=== PATIENT | male | born 1980 | race Caucasian/White ===

== ENCOUNTER 2020-01-10 04:59 | Emergency (ER) | payer OTHER, SELFPAY ==
[2020-01-10] MEDS ORDERED: Lidocaine 1% w/Epinephrine 1:100K 20 ML VIAL ONE (05:57)
[2020-01-10] MEDS ORDERED: Amoxicillin/Potassium Clav 875 MG TAB ONE (06:19)
== END 2020-01-10 07:31 | disposition home or self-care (01) ==
LOC: ERS 04:59
DX: S66.122A Laceration of flexor muscle, fascia and tendon of right middle finger at wrist and hand level, initial encounter (principal); S56.921A Laceration of unspecified muscles, fascia and tendons at forearm level, right arm, initial encounter; F17.210 Nicotine dependence, cigarettes, uncomplicated; F43.0 Acute stress reaction; W25.XXXA Contact with sharp glass, initial encounter
CPT/HCPCS: 12002; J0690; J3490

== ENCOUNTER 2020-01-10 13:52 | Inpatient (IN) | payer SELFPAY ==
[~2020-01-10 13:52] MED LIST: Dexamethasone 20 MG/5 ML VIAL ONE; Lidocaine 1% PF 5 ML VIAL ONE; Ondansetron PF 4 MG/2 ML Vial ONE; PROPOFOL 200 MG/20 ML VIAL ONE
--- NOTE | 2020-01-10 15:17 | RAD ---
EXAM: 3 views of the right hand COMPARISON: None HISTORY: Hand pain after going through glass FINDINGS: 3 views of the hand shows no evidence of acute fracture or dislocation. There is possibly a small radiopaque foreign body along the volar aspect of the proximal phalanx of the middle finger. No degenerative changes are seen. No soft tissue swelling is present. IMPRESSION: Possible small foreign body in the middle finger.
[2020-01-10] MEDS ORDERED: Morphine 4 MG/ML VIAL ONE ×2 (15:34→16:21)
[2020-01-10] MEDS ORDERED: CEFAZOLIN 1 GM VIAL ONE ×2 (15:34→23:51)
[2020-01-10 16:04] LABS: #Basophils 0.1 thou/uL (0.0-0.2); #Eosinphils 0.1 thou/uL (0.0-0.7); #Lymphocytes 1.3 thou/uL (1.20-3.40); #Monocytes 0.9 thou/uL (0.11-0.59); #Neutrophils 10.7 thou/uL (1.40-6.50); %Basophils 0.5 % (0.0-1.0); %Eosinophils 0.8 % (0.0-10.0); %Lymphocytes 10.2 % (21.0-51.0); %Monocytes 6.8 % (0.0-10.0); %Neutrophils 81.8 % (42.0-75.0); Hemoglobin 15.6 g/dL (14.0-18.0); Mean Corpuscular Hemoglobin 31.1 pg (27.0-31.0); Mean Corpuscular Volume 94.1 fL (78.0-98.0); Mean Platelet Volume 8.7 fL (7.4-10.4); Platelet Count 227 thou/uL (130-400); RBC Distribution Width 11.5 % (11.5-14.5); Red Blood Cell (RBC) Count 5.03 mill/uL (4.70-6.10); White Blood Cell (WBC) Count 13.1 thou/uL (4.8-10.8)
[2020-01-10 16:19] LABS: ALT (SGPT) 16 U/L (8-55); AST (SGOT) 21 U/L (5-34); Albumin 4.5 g/dL (3.5-5.0); Alkaline Phosphatase 65 U/L (40-110); Anion Gap 13 mmol/L (10-20); BUN (Urea Nitrogen) 15 mg/dL (8.9-20.6); Bilirubin, Total 1.4 mg/dL (0.2-1.2); Calc. Creatinine Clearance 0 mL/min (70-130); Calcium 10.3 mg/dL (7.8-10.44); Carbon Dioxide 27 mmol/L (22-29); Chloride 102 mmol/L (98-107); Estimated GFR-MDRD Greater than 90; Globulin 2.7 g/dL (2.4-3.5); Glucose 84 mg/dL (70-105); Potassium 4.3 mmol/L (3.5-5.1); Protein, Total 7.2 g/dL (6.0-8.3); Sodium 138 mmol/L (136-145)
[2020-01-10] MEDS ORDERED: Morphine 2 MG/ML SYRINGE ONE (16:19)
[2020-01-10] MEDS ORDERED: Nicotine 14 MG PATCH ONE (17:08)
[2020-01-10] MEDS ORDERED: Bupivacaine PF 0.5% 30 ML VIAL ONE (19:26)
[2020-01-10] MEDS ORDERED: Heparin 10,000 UNITS/1 ML VIAL ONE (19:26)
[2020-01-10] MEDS ORDERED: Betamet Acet/Betamet Na Ph 30 MG/5 ML VIAL ONE (19:26)
[2020-01-10] MEDS ORDERED: Bacitracin Zinc Ointment 30 gm TUBE ONE (19:27)
[2020-01-10] MEDS ORDERED: Hetastarch 6% 500 ML 0 ML ONE (19:27)
[2020-01-10] MEDS ORDERED: Lidocaine 2% PF 5 ML VIAL ONE (19:27)
[2020-01-10] MEDS ORDERED: Fentanyl 100 MCG/2 ML VIAL ONE ×2 (19:34→21:57)
[2020-01-11] MEDS ORDERED: Ketorolac Tromethamine 30 MG/ML VIAL IVP PRN ×2 (00:50→00:58)
[2020-01-11] MEDS ORDERED: Promethazine HCl 25 MG/ML VIAL IM PRN (00:50)
[2020-01-11] MEDS ORDERED: Promethazine HCl 25 MG/ML VIAL SLOW IVP PRN (00:50)
[2020-01-11] MEDS ORDERED: Ondansetron HCl/PF 4 MG/2 ML Vial IVP PRN (00:50)
[2020-01-11] MEDS ORDERED: Acetaminophen 325 MG TAB PO PRN (00:55)
[2020-01-11] MEDS ORDERED: Fentanyl 100 MCG/2 ML VIAL SLOW IVP PRN (00:55)
[2020-01-11] MEDS ORDERED: HYDROcodone/Acetaminophen 10/325 mg Tablet PO PRN (00:55)
[2020-01-11] MEDS ORDERED: Ondansetron PF 4 MG/2 ML Vial IV PRN (00:55)
[2020-01-11] MEDS ORDERED: Morphine 4 MG/ML VIAL SLOW IVP PRN (00:55)
[2020-01-11] MEDS ORDERED: Meperidine HCl/PF 25 MG/ML VIAL IM PRN (00:58)
[2020-01-11] MEDS ORDERED: Ketorolac Tromethamine 30 MG/ML VIAL ONE (01:00)
[2020-01-11 02:15] VITALS: BMI 23.7
[2020-01-11] MEDS: Vancomycin HCl 1.25 GM in Sodium Chloride 0.9% 250 ML 250 ML IVPB SCH ×3 (04:54→20:33)
[2020-01-11] MEDS: Ketorolac Tromethamine 30 MG/ML VIAL IVP SCH ×3 (04:55→18:31)
[2020-01-11] MEDS: Aspirin 81 mg Enteric Coated Tablet PO SCH ×2 (08:15→20:33)
[2020-01-11] MEDS: HYDROcodone/Acetaminophen 5/325 mg Tablet PO PRN ×3 (08:37→20:33)
[2020-01-11] MEDS ORDERED: TETANUS AND DIPHTHERIA TOX/PF 0.5 ML DISP.SYRIN IM SCH (09:00)
[2020-01-11] MEDS ORDERED: Vancomycin HCl 1 GM in Premix Bag 1 BAG IVPB SCH (09:00)
--- NOTE | 2020-01-11 13:54 | OP ---
DATE OF PROCEDURE: 01/11/2020 DATE OF SERVICE: Surgery began on January 10, 2020 and ended early in the morning on January 11, 2020. PREOPERATIVE DIAGNOSES: 1. Ring finger, open wound, 2 cm. 2. Middle finger, open wound with flexor digitorum profundus and superficialis laceration to open wound with ulnar digital nerve and radial digital nerve laceration. 3. 7 cm palmar wrist wound: Laceration down to involving 50% longitudinal laceration of the flexor carpi ulnaris with no underlying ulnar artery or nerve involvement and median nerve intact via neuroplasty. POSTOPERATIVE DIAGNOSES: 1. Ring finger, open wound, 2 cm. 2. Middle finger, open wound with flexor digitorum profundus and superficialis laceration to open wound with ulnar digital nerve and radial digital nerve laceration. 3. 7 cm palmar wrist wound: Laceration down to involving 50% longitudinal laceration of the flexor carpi ulnaris with no underlying ulnar artery or nerve involvement and median nerve intact via neuroplasty. 4. Only minimal contamination of a few particles seen under loupe magnification, not seen grossly. PROCEDURES PERFORMED: At the wrist, right, 1. Debridement of wound, intermediate depth. 2. Closure wound, 7 cm. 3. Median nerve neuroplasty. 4. Ulnar nerve neuroplasty. 5. Closure of wound, 7 cm wrist. 6. Partial repair, flexor carpi ulnaris tendon. At the middle finger, 1. Debridement of wound. 2. Closure of wound, 5 cm. 3. A1 john release. 4. Flexor digitorum superficialis zone 2 repair. 5. Flexor digitorum profundus zone 2 repair. 6. Radial digital nerve repair, microscopic. 7. Ulnar digital nerve repair, microscopic. 8. Digital neuroplasty x2. At the ring finger: 1. Debridement of wound. 2. Closure of wound, 3 cm. ESTIMATED BLOOD LOSS: 10 mL. TOURNIQUET TIME: 120 minutes. INDICATIONS: The patient accidentally had his arm penetrating window, glass with approximately 12 hours before procedure. Operative interventions indicated urgently because of gross contamination and obvious tendon and nerve compromise without vascular injury to the middle finger. DESCRIPTION OF PROCEDURE: After successful general endotracheal anesthesia, the limb was prepped and draped. We gave the patient 20 mL of 0.5% Marcaine block in the digits and 10 at the wound in the forearm. We then removed all sutures. We took the prepped and draped wound, outlined zigzag incision over the middle finger and outlined the curvilinear incision over the distal forearm to approach all sites. We first approached the forearm where we found that the flexor carpi ulnaris longitudinally, but we lifted up the FCU, did ulnar neuroplasty, and saw the neurovascular bundles intact, and then we saw a small amount of denudation of fat over the median nerve, did a neuroplasty the fibers intact. We removed some particles. We irrigated with Pulsavac with 3 L normal saline with antibiotics inside. Covered this with dressing. We turned our attention to the digit. We saw the 3-cm laceration over the ring finger, extended ulnarly enough to visualize, there was no flexor or digital nerve involvement. We then extended the transverse incision across the entire base of the middle finger proximally ulnarly and distally and radially. We dissected down and saw that the ulnar neurovascular bundle was completely cut, but the radial vascular bundle was intact with bounding pulse that was keeping the digit alive. We then found the tendon communis site, there was an injury. The injury was through the mid to distal third of the A1 john, same john release for trigger finger. For this reason, we decided to remove the A1 john to make visualization easy. The flexor digitorum profundus tendons and superficialis were lacerated just the distal 1/3 of the A1 john. It thus was still a zone 2 injury. We debrided small amount of tendon, did appropriate retraction, pulled both ends of both tendons into the wound and held them with flexion of the digit on one hand and a Donnie needle along the other. We then placed Ham-Paula sutures in all 3 tendon (radial and ulnar branch of the FDS and the entire FDP), used the sutures to reduce the defect, ran a 6-0 Prolene epitenon stitch in the FDP to the middle finger and then did the same to the FDS both aspects. We then tied the limb size sutures, then tied the running Prolene epitenon suture, and we had excellent purchase and the tendons now gave the previously totally straight PIP joint approximately 85 degrees of motion and also improved all of the parameters. We had excellent glide. No evidence of a gap formation even with the PIP in neutral and the MP joints at greater than 60 degrees. We had finished all debridements, and at this time, we performed a neuroplasty of the digital nerve under microscope, digital nerve from the underlying neurovascular bundle, especially on the radial side where the only blood supply to the hand has come from the bundle. We were able to separate the nerve from the artery with the neuroplasty, placed a blue background underneath the nerve and then brought the microscope on the field finally for utilization. It was here that we resected 1 mm of the nerve because there was excellent overlap, and we were able to use 8-0 Nurolon suture x4 stitches on both the radial and the ulnar branches of the digital nerve and given excellent apposition using the epineural sheath primarily. Now, we could take it wrist flexor 30 degrees and extend the PIP joint and achieve 0 degrees at extension. The running epitenon sutures gave excellent performance in terms of the strength and additional . Now, we placed a moist sponge here, turned attention to forearm wound. Here, we irrigated this wound with 3 L of normal saline and Pulsavac pressure, finished debridement of gross debris and removed denuded fat and then prepared to close this wound as well. This was done with interrupted 3-0 Monocryl followed by a 4-0 nylon interrupted mattress pattern. The patient then had excellent wound characteristics to include no excess bleeding, which gave us excellent hemostasis. We finished closing the epidermis on the digit with 4-0 nylon interrupted pattern and the same thing on the finger. The patient left the operating room now with a bulky dressing, bacitracin, Adaptic, 4 x 4, Kerlix, and a long-arm splint with the wrist at 20 degrees of flexion palmarly, the MP joints at 90 degrees and the PIP joint except for the small finger at 0 degrees, but at this time, the PIP joint was involved in the process of the surgical intervention. The dressing was held loosely with Dirk wraps, and the patient left the operating room without evidence of anesthetic or operative complication. Job ID: [id number]
[2020-01-11] MEDS: traMADol HCl 50 MG TAB PO PRN (20:36)
[2020-01-12] MEDS: Ketorolac Tromethamine 30 MG/ML VIAL IVP SCH ×2 (01:00→04:59)
[2020-01-12 04:05] LABS: Vancomycin, Trough 15.1 ug/mL
[2020-01-12] MEDS: Vancomycin HCl 1.25 GM in Sodium Chloride 0.9% 250 ML 250 ML IVPB SCH (04:59)
[2020-01-12] MEDS: HYDROcodone/Acetaminophen 5/325 mg Tablet PO PRN (05:04)
[2020-01-12] MEDS: traMADol HCl 50 MG TAB PO PRN (05:05)
[2020-01-12] MEDS: Aspirin 81 mg Enteric Coated Tablet PO SCH (08:03)
[2020-01-12 08:38] VITALS: BP 113/75; TEMP 97.9
== END 2020-01-12 10:45 | disposition left against medical advice (07) | DRG 41 ==
LOC: ERS 13:52 → SURG A 16:13
PROVIDERS: ADMIT Orthopaedic Surgery Hand Surgery; ATTEND Orthopaedic Surgery Hand Surgery
PROC: 01Q40ZZ Repair Ulnar Nerve, Open Approach (ICD-10-PCS; principal; 2020-01-11)
PROC: 01Q50ZZ Repair Median Nerve, Open Approach (ICD-10-PCS; 2020-01-11)
PROC: 0LQ70ZZ Repair Right Hand Tendon, Open Approach (ICD-10-PCS; 2020-01-11)
PROC: 01Q60ZZ Repair Radial Nerve, Open Approach (ICD-10-PCS; 2020-01-11)
DX: S64.01XA Injury of ulnar nerve at wrist and hand level of right arm, initial encounter (principal); S66.122A Laceration of flexor muscle, fascia and tendon of right middle finger at wrist and hand level, initial encounter; S64.21XA Injury of radial nerve at wrist and hand level of right arm, initial encounter; S61.216A Laceration without foreign body of right little finger without damage to nail, initial encounter; F17.210 Nicotine dependence, cigarettes, uncomplicated; W25.XXXA Contact with sharp glass, initial encounter; Y93.89 Activity, other specified; Y92.89 Other specified places as the place of occurrence of the external cause
CPT/HCPCS: 36415; 80053; 80202; 85025; 96365; 96375; 96376; J0690; J0702; J1100; J1644; J1885; J2001; J2270; J2405; J2704; J3010; J3370; J3490; J7050; S0020